=== PATIENT | female | born 1995 | race Caucasian/White ===

== ENCOUNTER → 2018-03-26 | Day surgery (SDC) | payer OTHER ==
[~2018-03-26] VITALS: Ht 162.6 cm; Wt 68.0 kg
[~2018-03-26] MED LIST: EFFEXOR XR37.5 M1 PO; PERCOCET 7.5-31 EACH PO; VALIUM5 M2 PO
--- NOTE | 2018-03-26 14:30 | Operative Report ---
Operative/Inv Procedure Report Surgery Date: 03/26/18 Name of Procedure: Removal of implant deep right ankle Pre-Operative Diagnosis: Retained hardware right ankle status post open reduction internal fixation right PILON fracture Post-Operative Diagnosis: Same Estimated Blood Loss: scant Surgeon/Business Services Clerk: Sal Regalado MD Anesthesia: moderate sedation, block IV Fluids: See anesthesia record Implants: None Drains: None Specimens: Hardware to pathology Complications: 65 minutes Condition: Stable Operative Indication: Patient's 22-year-old female status post open reduction internal fixation of her right heel pilon fracture a year and a half ago. She wished to have her hardware removed. There is some evidence of procedure discussed the patient detail the office. Operative/Procedure Note Note: Once informed consent was obtained and the correct limb was identified patient brought to operative room placed on table supine position. After administration of sedation tourniquet was placed and the right lower extremity was prepped and draped usual sterile fashion. Mini C-arm fluoroscopy was brought in to identify the location of the hardware. The medial malleolar screws were identified and the small incision using the previous incision was opened and the screws removed without complication. Using the old lateral incision for a lateral plating this incision was opened as well. Sharp dissection was carried down through skin and subcutaneous tissue and scar tissue. The plate was easily identified and the 4 screws removed from the plate and the plate is removed without compensation. There is a small 2.0 cannulated screw which was left in place after an attempt to remove the screw. Most likely that screw had been buried with bone and with interval healing. The wounds were irrigated with sterile saline. The lateral wound was closed 2-0 Vicryl sutures and 3-0 nylon interrupted sutures. This medial wound was closed with 3-0 nylon interrupted sutures. A sterile dressing was applied and the patient was awakened taken recovery in stable condition.
== END ==
LOC: STS 00:48
DX: T84.84XA Pain due to internal orthopedic prosthetic devices, implants and grafts, initial encounter (principal); E06.3 Autoimmune thyroiditis
CPT/HCPCS: 81025; J0690; J2250